=== PATIENT | male | born 1940 | race Caucasian/White ===

== ENCOUNTER → 2016-10-29 | Outpatient (CLI) | payer MEDICARE, OTHER ==
[~2016-10-29] MED LIST: AMBIEN PO; APRESOLINE10 M1 PO; ARTIFICIAL TEAR15 ML OP; ASPIRIN PO; B-121000 MC1 PO; BAYER CHEWABLE81 MG PO; BUPROPION HCL150 M1 PO; CAPOZIDE PO; CARDIZEM PO; CELEBREX PO; CENTRUM SILVER; CENTRUM SILVER1 EACH PO; CERTAGEN PO; CO Q-1010 MG PO; COLACE PO; CRESTOR PO; DARVOCET-N 1001 TAB PO; DIAZEPAM PO; EC-NAPROSYN500 MG PO; ELIQUIS2.5 MG PO; FLUOXETINE HCL10 MG PO; GLUCOPHAGE XR500 MG PO; HCTZ PO; HYTRIN PO; IBUPROFEN PO; IBUPROFEN800 MG PO; LIPITOR40 MG PO; LISINOPRIL PO; LISINOPRIL20 MG PO; LODINE PO; LOPRESSOR PO; METFORMIN PO; METOPROLOL/HCTZ PO; NORVASC PO; Nitrostat; OMEPRAZOLE20 M1 PO; PRILOSEC PO; PROSCAR5 MG PO; PROZAC PO; SAW PALMETTO PO; SURFAK240 MG PO; TAMIFLU75 MG PO; TEGRETOL PO; TEGRETOL XR PO; TOPROL XL PO; TRAMADOL HCL50 M1 PO; TYLOX 5/500 CAP1 CAP PO; VIT B-12 PO; VITAMIN D-32000 UNI1 PO; VITAMIN D1000 UNIT PO; VYTORIN 10/10 T1 TAB PO; ZEGERID40 MG/PKT PO; ZETIA PO; ZOLPIDEM TARTRA10 MG PO
== END | disposition home or self-care (01) ==
LOC: CLAB 07:55
DX: C61 Malignant neoplasm of prostate (principal)
CPT/HCPCS: 36415; G0103